=== PATIENT | male | born 1980 | race Caucasian/White ===

== ENCOUNTER 2016-07-30 10:34 | Emergency (ER) | payer SELFPAY ==
[~2016-07-30] VITALS: Ht 177.8 cm; Wt 84.0 kg
[~2016-07-30 10:34] MED LIST: HYDR-3498 PO; NAPR-260 PO
[2016-07-30 10:38] VITALS: Ht 177.8 cm; Wt 84.0 kg
[2016-07-30] MEDS ORDERED: IBUPROFEN 800 MG TAB PO ONE (11:30)
--- NOTE | 2016-07-30 11:39 | RADRPT ---
PROCEDURE: XR Chest. CLINICAL INDICATION: Chest pain TECHNIQUE: A single AP view of the chest was obtained. COMPARISON: None. FINDINGS: No focal airspace opacification, pleural effusion or pneumothorax is seen. The cardiomediastinal si lhouette is within normal limits for size. The osseous structures are unremarkable. IMPRESSION: No radiographic evidence of acute cardiopulmonary disease. RPTAT: HH .Mihaela Dahl MD, MD Date Time Electronically viewed and signed by .Mihaela Dahl MD, on 07/30/2016 11:39 .G/
[2016-07-30] MEDS ORDERED: IBUP-1542 PO (11:56)
--- NOTE | 2016-07-30 11:57 | ERD ---
ER Documentation Chief Complaint Date/Time DATE: 07/30/16 TIME: 11:57 Chief Complaint CHEST PAIN WITH PALPIATIONS ON AND OFF X 3 DAYS HPI Patient is a 36-year-old male with no medical problems who presents with chest pain. He said that 2 days ago he stopped taking "rip juice" which he has been taking for the past 2 years. The patient said that he felt an irregular heartbeat 2 days ago and felt like his heart was racing. He also had shortness of breath and felt like something was in his chest. He has had no recent travel. He has had no treatment for this as of yet. The pain was coming and going. ROS All systems reviewed and are negative except as per history of present illness. Medications Home Meds Active Scripts Ibuprofen* (Motrin*) 600 Mg Tab, 600 MG PO Q6H Y for PAIN AND OR ELEVATED TEMP, #30 TAB Prov:RODRÍGUEZ PAT MD 07/30/16 Discontinued Scripts Hydrocodone Bit-Acetaminophen* (Dendron*) 5-325 Mg Tab, 1 TAB PO Q6 Y for PAIN, # 12 TAB Prov:NORMA FAJARDO DO 10/27/15 Naproxen* (Naprosyn*) 500 Mg Tablet, 500 MG PO BID Y for PAIN AND/OR INFLAMMATION, #30 TAB Prov:NORMA FAJARDO DO 10/27/15 Allergies Allergies: Coded Allergies: No Known Allergy (Unverified , 07/30/16) PMhx/Soc History of Surgery: Yes (BILATERAL KNEE SURGERY, hernia repair) Anesthesia Reaction: No Hx Neurological Disorder: No Hx Respiratory Disorders: No Hx Cardiac Disorders: No Hx Psychiatric Problems: No Hx Miscellaneous Medical Probl: No Hx Alcohol Use: No Hx Substance Use: No Hx Tobacco Use: No Smoking Status: Never smoker FmHx Family History: No coronary disease Physical Exam Vitals Vital Signs Date Time Temp Pulse Resp B/P Pulse Ox O2 Delivery O2 Flow Rate FiO2 07/30/16 10:38 98.2 78 18 137/87 100 Physical Exam Const: No acute distress Head: Atraumatic Eyes: Normal Conjunctiva ENT: Normal External Ears, Nose and Mouth. Neck: Full range of motion..~ No meningismus. Resp: Clear to auscultation bilaterally Cardio: Regular rate and rhythm, no murmurs Abd: Soft, non tender, non distended. Normal bowel sounds Skin: No petechiae or rashes Back: No midline or flank tenderness Ext: No cyanosis, or edema Neur: Awake and alert Psych: Anxious Results 24 hrs Current Medications Medications (Trade) Dose Ordered Sig/Jonathan Route PRN Reason Start Time Stop Time Status Last Admin Dose Admin Ibuprofen (Motrin) 800 mg ONCE ONCE PO 07/30/16 11:30 07/30/16 11:31 DC 07/30/16 11:35 Procedures/MDM EKG read by me: Rate/Rhythm: Regular rate and rhythm at a rate of 93 Intervals: Normal Impression: No evidence of ischemia or arrhythmia Chest x-ray negative per radiology. Patient is a 36-year-old male presents with chest pain. He has no risk factors of the fact he was taking a caffeine supplement for the past 2 years. His EKG and chest x-ray are normal. At this point I believe outpatient management is appropriate. I do not believe he requires further workup or admission to the hospital at this time. The patient was given ibuprofen and will be given a prescription for ibuprofen. He was given a list of local clinics as he does not currently have a primary doctor in [place]. He can return for any worsening symptoms. Departure Diagnosis: Primary Impression: Caffeine use Additional Impression: Chest pain Chest pain type: unspecified Qualified Code: R07.9 - Chest pain, unspecified type Condition: Fair Patient Instructions: Chest Pain, Uncertain Cause Referrals: [facility] YOU HAVE RECEIVED A MEDICAL SCREENING EXAM AND THE RESULTS INDICATE THAT YOU DO NOT HAVE A CONDITION THAT REQUIRES URGENT TREATMENT IN THE EMERGENCY DEPARTMENT. FURTHER EVALUATION AND TREATMENT OF YOUR CONDITION CAN WAIT UNTIL YOU ARE SEEN IN YOUR DOCTORS OFFICE WITHIN THE NEXT 1-2 DAYS. IT IS YOUR RESPONSIBILITY TO MAKE AN APPOINTMENT FOR FOLOW-UP CARE. IF YOU HAVE A PRIMARY DOCTOR --you should call your primary doctor and schedule an appointment IF YOU DO NOT HAVE A PRIMARY DOCTOR YOU CAN CALL OUR PHYSICIAN REFERRAL HOTLINE AT IF YOU CAN NOT AFFORD TO SEE A PHYSICIAN YOU CAN CHOSE FROM THE FOLLOWING [facility] [address] [facility] [address] [facility] [facility] [address] [facility] [address] [facility] [address] [facility]. [facility] [address] Additional Instructions: Call your primary care doctor TOMORROW for an appointment during the next 1-2 days.See the doctor sooner or return here if your condition worsens before your appointment time. RODRÍGUEZ PAT MD Jul 30, 2016 11:57
== END 2016-07-30 13:04 | disposition home or self-care (01) ==
LOC: E/R 10:34
DX: F15.90 Other stimulant use, unspecified, uncomplicated (principal)
CPT/HCPCS: 71010; 93005